=== PATIENT | female | born 1945 | race Caucasian/White ===

== ENCOUNTER 2017-06-20 17:48 | Inpatient (IN) | payer OTHER ==
[~2017-06-20] VITALS: Ht 154.9 cm; Wt 54.5 kg
[2017-06-20] MEDS ORDERED: SODIUM CHLORIDE 0.9% 1,000 ML IVB ONE (19:30)
[2017-06-20 19:42] LABS: Basophils # (auto) 0 uL; Basophils % (auto) 0.5 % (0.0-2.0); Eosinophils # (auto) 0.1 uL; Lymphocytes # (auto) 1.5 uL; Neutrophils # (auto) 6.9 uL; Nucleated Red Blood Cells % 0.2 %
[2017-06-20 19:44] LABS: Eosinophils % (auto) 0.9 % (0.0-7.0); Hematocrit 16.9 % (36.0-46.0); Lymphocytes % (auto) 16.7 % (10.0-50.0); Mean Corpuscular Hemoglobin 33.6 pg (28.0-32.0); Mean Corpuscular Hgb Conc. 33.6 g/dL (32.0-36.0); Mean Corpuscular Volume 99.8 fL (80.0-100.0); Monocytes # (auto) 0.6 uL; Monocytes % (auto) 6.5 % (0.0-12.0); Neutrophils % (auto) 75.4 % (37.0-80.0); Platelet Count (auto) 243 10^3/uL (140-450); Red Blood Cells 1.69 10^6/uL (4.0-5.20); Red Cell Distribution Width 13.7 % (11.8-14.3); White Blood Cell 9.2 10^3/uL (4.4-10.8)
[2017-06-20 19:57] LABS: Alanine Aminotransferase 20 U/L (13-56); Albumin 2.6 g/dL (3.4-5.0); Anion Gap 9 (5-15); Aspartate Aminotransferase 19 U/L (15-37); BUN/Creatinine Ratio 70.7; Blood Urea Nitrogen 41 mg/dL (7-18); Calcium 8.1 mg/dL (8.5-10.1); Carbon Dioxide 27 mmol/L (21-32); Chloride 104 mmol/L (98-107); GFR African American 131 mL/min; GFR Non-African American 109 mL/min; Glucose 106 mg/dL (74-106); Potassium 3.3 mmol/L (3.5-5.1); Sodium 140 mmol/L (136-145)
[2017-06-20 20:01] LABS: Alkaline Phosphatase 60 U/L (45-117); Bilirubin, Total < 0.1 mg/dL (0.2-1.0); Total Protein 5.2 g/dL (6.4-8.2)
[2017-06-20 20:05] LABS: Hemoglobin 5.7 g/dL (12.2-16.2)
[2017-06-20 20:26] LABS: INR 0.98 (0.9-1.15); Partial Thromboplastin Time 19.8 sec (22.64-33.71); Prothrombin Time 10.7 sec (9.37-12.3)
[2017-06-20] MEDS ORDERED: PANTOPRAZOLE 80 MG in SODIUM CHL 0.9% 60 ML IV ONE (22:00)
[2017-06-20] MEDS ORDERED: ONDANSETRON HCL 4 MG/2 ML VIAL IV PRN (22:15)
[2017-06-20] MEDS ORDERED: ACETAMINOPHEN 500 MG TAB PO PRN (22:15)
[2017-06-20] MEDS ORDERED: PANTOPRAZOLE 40 MG/10 ML VIAL IV ONE (22:23)
[2017-06-20] MEDS ORDERED: POTASSIUM CHL 20 Meq TABLET PO ONE ×2 (22:30→23:37)
[2017-06-20 22:42] LABS: Urine Bacteria FEW /hpf (None Seen); Urine Blood Negative /uL (Negative); Urine Hyaline Cast FEW /lpf (0 - 2); Urine Mucus FEW (None Seen); Urine Specific Gravity 1.021 (1.001-1.035); Urine WBC 1 /hpf (0 - 5)
[2017-06-20 23:26] VITALS: BP 111/60
[2017-06-20 23:42] VITALS: BP 109/59
[2017-06-21] VITALS (13 sets, daily range): BP systolic 99–158; BP diastolic 51–94
[2017-06-21] MEDS: PARoxetine 20 MG TAB PO SCH (11:00)
[2017-06-21] MEDS ORDERED: SOD CHL 0.9%/ KCL 40MEQ 1,000 ML IV SCH (11:00)
[2017-06-21] MEDS: PANTOPRAZOLE 40 MG/10 ML VIAL IV SCH ×2 (11:00→22:32)
[2017-06-21 11:24] LABS: Basophils # (auto) 0 uL; Basophils % (auto) 0.5 % (0.0-2.0); Eosinophils # (auto) 0.1 uL; Eosinophils % (auto) 0.9 % (0.0-7.0); Hematocrit 28.4 % (36.0-46.0); Hemoglobin 9.7 g/dL (12.2-16.2); Lymphocytes # (auto) 1.8 uL; Lymphocytes % (auto) 29.3 % (10.0-50.0); Mean Corpuscular Hemoglobin 31.2 pg (28.0-32.0); Mean Corpuscular Hgb Conc. 34.1 g/dL (32.0-36.0); Mean Corpuscular Volume 91.6 fL (80.0-100.0); Monocytes # (auto) 0.5 uL; Monocytes % (auto) 8.1 % (0.0-12.0); Neutrophils # (auto) 3.7 uL; Neutrophils % (auto) 61.2 % (37.0-80.0); Platelet Count (auto) 181 10^3/uL (140-450); Red Cell Distribution Width 16.7 % (11.8-14.3)
[2017-06-21 11:33] LABS: BUN/Creatinine Ratio 75.6; Calcium 7.4 mg/dL (8.5-10.1)
[2017-06-21] MEDS ORDERED: ARTISOL13 EACHEYE (17:12)
[2017-06-21] MEDS ORDERED: OXYB5TAB62 PO (17:12)
[2017-06-21] MEDS ORDERED: B-COTAB10 OR (17:12)
[2017-06-21] MEDS ORDERED: FAMO-12 PO (17:12)
[2017-06-21] MEDS ORDERED: VERA240T17 PO (17:12)
[2017-06-21] MEDS ORDERED: LOSA25TA9 PO (17:12)
[2017-06-21] MEDS ORDERED: PAR20T PO (17:12)
[2017-06-22] VITALS: BP 121/75
[2017-06-22 04:00] VITALS: BP 118/77
[2017-06-22 05:45] LABS: Basophils # (auto) 0 uL; Basophils % (auto) 0.3 % (0.0-2.0); Eosinophils # (auto) 0.1 uL; Eosinophils % (auto) 1.2 % (0.0-7.0); Hematocrit 29.5 % (36.0-46.0); Lymphocytes # (auto) 2.8 uL; Mean Corpuscular Hemoglobin 31.6 pg (28.0-32.0); Mean Corpuscular Volume 92.9 fL (80.0-100.0); Monocytes # (auto) 0.5 uL; Monocytes % (auto) 5.3 % (0.0-12.0); Neutrophils # (auto) 6.5 uL; Neutrophils % (auto) 65.2 % (37.0-80.0); Platelet Count (auto) 248 10^3/uL (140-450); Red Blood Cells 3.17 10^6/uL (4.0-5.20); Red Cell Distribution Width 16.5 % (11.8-14.3)
[2017-06-22 06:03] LABS: Albumin 2.4 g/dL (3.4-5.0); Calcium 8.6 mg/dL (8.5-10.1); Potassium 3.9 mmol/L (3.5-5.1)
[2017-06-22 06:06] LABS: BUN/Creatinine Ratio 43.1
[2017-06-22 06:09] LABS: Bilirubin, Total 0.6 mg/dL (0.2-1.0); Total Protein 5.1 g/dL (6.4-8.2)
[2017-06-22 08:00] VITALS: BP 108/71
[2017-06-22] MEDS ORDERED: SODIUM CHLORIDE LOCK 10 ML ONE (08:02)
[2017-06-22] MEDS ORDERED: LIDOCAINE VISCOUS 2% 15ML UD ONE (08:03)
[2017-06-22] MEDS ORDERED: diphenhdrAMINE HCL 50 MG/1 ML VL ONE (08:03)
[2017-06-22] MEDS: PANTOPRAZOLE 40 MG/10 ML VIAL IV SCH ×2 (09:55→22:34)
[2017-06-22] MEDS: PARoxetine 20 MG TAB PO SCH (10:00)
[2017-06-22 11:51] VITALS: BP 98/64
[2017-06-22] MEDS: fentaNYL CITRATE 100 MCG/2 ML VL ONE ×2 (13:22→13:31)
[2017-06-22] MEDS: MIDAZOLAM HCL 5 MG/ML-1ML VIAL ONE ×2 (13:22→13:31)
[2017-06-22 22:05] VITALS: BP 103/60
[2017-06-22] MEDS ORDERED: TEMAZEPAM 15 MG CAP PO ONE (23:15)
[2017-06-23] VITALS (9 sets, daily range): BP systolic 99–126; BP diastolic 56–73
[2017-06-23 05:38] LABS: Basophils # (auto) 0 uL; Basophils % (auto) 0.7 % (0.0-2.0); Eosinophils % (auto) 2.9 % (0.0-7.0); Hemoglobin 7.3 g/dL (12.2-16.2); Lymphocytes # (auto) 1.7 uL; Monocytes # (auto) 0.4 uL; Neutrophils # (auto) 2.9 uL; Nucleated Red Blood Cells % 0.1 %; White Blood Cell 5.2 10^3/uL (4.4-10.8)
[2017-06-23 05:40] LABS: Eosinophils # (auto) 0.2 uL; Hematocrit 21.1 % (36.0-46.0); Lymphocytes % (auto) 32.9 % (10.0-50.0); Mean Corpuscular Hemoglobin 32.6 pg (28.0-32.0); Mean Corpuscular Hgb Conc. 34.6 g/dL (32.0-36.0); Mean Corpuscular Volume 94.2 fL (80.0-100.0); Monocytes % (auto) 7.9 % (0.0-12.0); Neutrophils % (auto) 55.6 % (37.0-80.0); Platelet Count (auto) 190 10^3/uL (140-450); Red Blood Cells 2.24 10^6/uL (4.0-5.20)
[2017-06-23 06:03] LABS: Albumin 2.1 g/dL (3.4-5.0); BUN/Creatinine Ratio 82.5; Calcium 7.9 mg/dL (8.5-10.1); Potassium 3.8 mmol/L (3.5-5.1)
[2017-06-23 06:06] LABS: Bilirubin, Total 0.2 mg/dL (0.2-1.0); Total Protein 4.5 g/dL (6.4-8.2)
[2017-06-23] MEDS: PANTOPRAZOLE 40 MG/10 ML VIAL IV SCH ×2 (09:32→22:10)
[2017-06-23] MEDS: PARoxetine 20 MG TAB PO SCH (09:33)
[2017-06-23 12:44] LABS: Basophils # (auto) 0 uL; Eosinophils # (auto) 0.1 uL; Neutrophils % (auto) 68.5 % (37.0-80.0)
[2017-06-23 12:46] LABS: Basophils % (auto) 0.5 % (0.0-2.0); Eosinophils % (auto) 1.5 % (0.0-7.0); Hematocrit 21.9 % (36.0-46.0); Hemoglobin 7.6 g/dL (12.2-16.2); Lymphocytes # (auto) 1.6 uL; Lymphocytes % (auto) 23.3 % (10.0-50.0); Mean Corpuscular Hemoglobin 32.5 pg (28.0-32.0); Mean Corpuscular Hgb Conc. 34.8 g/dL (32.0-36.0); Mean Corpuscular Volume 93.4 fL (80.0-100.0); Monocytes # (auto) 0.4 uL; Monocytes % (auto) 6.2 % (0.0-12.0); Neutrophils # (auto) 4.8 uL; Platelet Count (auto) 202 10^3/uL (140-450); Red Blood Cells 2.34 10^6/uL (4.0-5.20); Red Cell Distribution Width 16.4 % (11.8-14.3); White Blood Cell 7.1 10^3/uL (4.4-10.8)
[2017-06-23] MEDS: SODIUM CHLORIDE 0.9% 1,000 ML IV SCH (16:09)
[2017-06-24] VITALS (7 sets, daily range): BP systolic 101–119; BP diastolic 62–70
[2017-06-24] MEDS: SODIUM CHLORIDE 0.9% 1,000 ML IV SCH (05:32)
[2017-06-24 06:18] LABS: Basophils # (auto) 0 uL; Basophils % (auto) 0.7 % (0.0-2.0); Eosinophils # (auto) 0.2 uL; Eosinophils % (auto) 3.7 % (0.0-7.0); Hematocrit 24.9 % (36.0-46.0); Hemoglobin 8.5 g/dL (12.2-16.2); Lymphocytes # (auto) 1.4 uL; Lymphocytes % (auto) 26.9 % (10.0-50.0); Mean Corpuscular Hgb Conc. 34.1 g/dL (32.0-36.0); Mean Corpuscular Volume 94.1 fL (80.0-100.0); Monocytes # (auto) 0.4 uL; Neutrophils # (auto) 3.1 uL; Neutrophils % (auto) 60.7 % (37.0-80.0); Nucleated Red Blood Cells % 0.1 %; Platelet Count (auto) 194 10^3/uL (140-450); Red Blood Cells 2.64 10^6/uL (4.0-5.20); White Blood Cell 5.1 10^3/uL (4.4-10.8)
[2017-06-24 06:51] LABS: Albumin 2.4 g/dL (3.4-5.0); BUN/Creatinine Ratio 39.6; Bilirubin, Total 0.2 mg/dL (0.2-1.0); Calcium 7.8 mg/dL (8.5-10.1); Potassium 3.8 mmol/L (3.5-5.1)
[2017-06-24 06:53] LABS: % Iron Saturation 15.4 % (15-50)
[2017-06-24] MEDS: PARoxetine 20 MG TAB PO SCH (09:54)
[2017-06-24] MEDS: PANTOPRAZOLE 40 MG/10 ML VIAL IV SCH (09:54)
[2017-06-24] MEDS ORDERED: ENOXAPARIN SOD 30 MG/0.3 ML SYRINGE SC ONE (13:15)
[2017-06-25] MEDS ORDERED: ENOXAPARIN SOD 30 MG/0.3 ML SYRINGE SC SCH (10:00)
[2017-06-25 10:45] LABS: Folate (Folic Acid) 14.94 ng/mL (5.38-24)
== END 2017-06-24 20:17 | disposition short-term general hospital (02) | DRG 378 ==
LOC: ER 17:48 → OVERFLOW 17:49 → DOU IN ICU 23:47 → TELE-CENTR 06-22 14:19
PROVIDERS: ADMIT Nurse Practitioner Family; ATTEND Internal Medicine
PROC: 30233N1 Transfusion of Nonautologous Red Blood Cells into Peripheral Vein, Percutaneous Approach (ICD-10-PCS; 2017-06-20)
PROC: 0DJD8ZZ Inspection of Lower Intestinal Tract, Via Natural or Artificial Opening Endoscopic (ICD-10-PCS; principal; 2017-06-22 13:19)
DX: K92.2 Gastrointestinal hemorrhage, unspecified (principal); E44.0 Moderate protein-calorie malnutrition; D50.0 Iron deficiency anemia secondary to blood loss (chronic); F32.9 Major depressive disorder, single episode, unspecified; I12.9 Hypertensive chronic kidney disease with stage 1 through stage 4 chronic kidney disease, or unspecified chronic kidney disease; I25.10 Atherosclerotic heart disease of native coronary artery without angina pectoris; K59.00 Constipation, unspecified; M10.9 Gout, unspecified; N18.3 Chronic kidney disease, stage 3 (moderate); Z80.3 Family history of malignant neoplasm of breast; Z82.49 Family history of ischemic heart disease and other diseases of the circulatory system; Z85.3 Personal history of malignant neoplasm of breast; Z86.73 Personal history of transient ischemic attack (TIA), and cerebral infarction without residual deficits; Z90.49 Acquired absence of other specified parts of digestive tract; Z90.13 Acquired absence of bilateral breasts and nipples; Z98.84 Bariatric surgery status; Z68.22 Body mass index [BMI] 22.0-22.9, adult
CPT/HCPCS: 36415; 36430; 43235; 70450; 71045; 72192; 74176; 80048; 80053; 81001; 82607; 82668; 82728; 82746; 83010; 83540; 83550; 83615; 83735; 84439; 84443; 84484; 85025; 85045; 85610; 85652; 85730; 86850; 86880; 86885; 86900; 86901; 86920; 87081; 93005; 96374; 97163; 99291; C9113; J2250; J2405